=== PATIENT | female | born 1975 | race Caucasian/White ===

== ENCOUNTER → 2016-12-15 | Outpatient (CLI) | payer OTHER ==
[~2016-12-15] MED LIST: ASA325 MG PO; KEFLEX-DPS500 MG PO; MIRALAX PACKET17 GM PO; PROTONIX40 MG PO; SENOKOT S1 TAB PO; TYLENOL DPS325 MG PO; ULTRAM DPS50 MG PO
== END | disposition home or self-care (01) ==
LOC: PTH.S 09:57
DX: Z01.818 Encounter for other preprocedural examination (principal); Z68.41 Body mass index [BMI] 40.0-44.9, adult

== ENCOUNTER 2016-12-26 09:56 | Inpatient (IN) | payer OTHER ==
[~2016-12-26] VITALS: Ht 160 cm; Wt 108.7 kg
--- NOTE | 2016-12-28 13:48 | OR ---
ADMIT: 12/26/2016 RM/LOC: 528 [facility] MR#: [id number] LOCATED WITHIN [facility]#: [id number] [address] [address] JONO SEO [address] [place] [address] Operative/Delivery Room Report SEX: F AGE: 40 : 1975 SURGERY DATE: 12/26/2016 SURGEON: Courtney Francis MD PREOPERATIVE DIAGNOSES: 1. Severe degenerative joint disease, right knee. 2. Status post anterior cruciate ligament reconstruction, right knee. POSTOPERATIVE DIAGNOSES: 1. Severe degenerative joint disease, right knee. 2. Status post anterior cruciate ligament reconstruction, right knee. PROCEDURES: 1. Right total knee arthroplasty. 2. Removal of screws, right knee. ANESTHESIA: Spinal. ASSISTED BY: ROSE MARIE Palacios. TOURNIQUET TIME: 60 minutes. ESTIMATED BLOOD LOSS: 25 mL. COMPLICATIONS: None. SPECIMEN: Bone, soft tissue, and metallic screws. COMPONENTS: Roland and Roland Attune total knee system with a #4 posterior stabilized lugged femoral, a #4 fixed bearing tibial, 8 mm tibial articular, and a 38 mm patella. I used 80 g of [place] SpeedSet bone cement without antibiotics. DESCRIPTION OF PROCEDURE: This patient was brought to the operating room. After satisfactory level of anesthesia was achieved, the right lower extremity was prepped and draped in the usual sterile fashion. Under tourniquet ischemia, a midline incision was made over the anterior aspect of the right knee through her prior skin incision. Dissection was carried down to her joint capsule where skin flaps were made at that level. A medial parapatellar incision was performed. The patella was then everted. I used an intramedullary alignment guide to make my distal femoral cut at 5 degrees in long axis of the femur. Then used the appropriate cutting block to prepare the femur for a #4 posterior stabilized lugged femoral component. The external alignment, and the notch cut, I did encounter the interference screw, which had been used for the anterior cruciate ligament reconstruction. I used an osteotome to better define the screw and then used a screwdriver to remove it. I could then finish the osteotomy for the notch cut. A #4 gave us the best coverage of the distal femur. The external alignment guide was then used for my tibial cut taking 2 mm off the lower side and appropriate amount off ADMIT: 12/26/2016 RM/LOC: 528 [facility] MR#: [id number] [address] [address] JONO SEO [address] [place] [address] Operative/Delivery Room Report SEX: F AGE: 40 : 1975 the medial side to correct her valgus deformity. A #4 tibial plate gave us the best coverage. I identified the screw in the tibia and easily removed this from the upper tibia and then used bone graft from my femoral side to bone graft the defect. An 8 mm gave us the best soft tissue tension and range of motion. The patella was then prepared for a 38 mm patellar component and she had very stable patellofemoral tracking. All trial components were then removed. Our local injection was then performed for postop pain control and when completed all bony surfaces were well irrigated and then dried and then using 80 g of [place] SpeedSet, bone cement without antibiotics I cemented in all components. The knee was held in extension and irrigated with warm antibiotic solution until the cement hardened. Once the cement had hardened, I flexed the knee, removed any extruded cement with an osteotome. I then irrigated the knee to remove any cement debris. The tourniquet was released at 60 minutes and the wound was thoroughly irrigated. Hemostasis was achieved using electrocautery. The joint capsule was then closed with interrupted #1 Vicryl running #2 Quill suture. The subcutaneous tissue reapproximated with 2- 0 Vicryl and skin with michael. A sterile dressing was applied to the wound and the patient was then transferred from the operative suite in stable condition. Courtney Francis MD/ abner JOB #: [id number] CC: Courtney Francis, Attending Physician FAMILY PHYSICIAN, Family Physician
[2016-12-29] MEDS ORDERED: ASA325 MG PO (17:07)
[2016-12-29] MEDS ORDERED: TYLENOL DPS325 MG PO (17:08)
[2016-12-29] MEDS ORDERED: MIRALAX PACKET17 GM PO (17:08)
[2016-12-29] MEDS ORDERED: PROTONIX40 MG PO (17:08)
[2016-12-29] MEDS ORDERED: SENOKOT S1 TAB PO (17:09)
[2016-12-29] MEDS ORDERED: ULTRAM DPS50 MG PO (17:09)
--- NOTE | 2017-01-03 07:44 | HP ---
ADMIT: 12/26/2016 RM/LOC: W.01 [facility] MR#: [id number] [address] [address] JONO SEO Ana [address] [place] [address] Pre-OP History and Physical SEX: F AGE: 40 : 1975 DATE OF SERVICE: CHIEF COMPLAINT: Degenerative joint disease, right knee. HISTORY: This patient presents for right total knee arthroplasty. She had an anterior cruciate ligament reconstruction many years ago. Her knee has gone on to arthritis, predominantly at the patellofemoral joint and lateral compartment. She has had an arthroscopic debridement, extensive physical therapy, multiple injections all without relief of her symptoms. She now has pain that interferes with activities of daily living and keeps her awake at night. PAST MEDICAL HISTORY: She has had a carpal tunnel in the past, anterior cruciate reconstruction, arthroscopic debridement of the right knee in 2013, and in the past. MEDICATIONS: Include: 1. Adri. 2. Ibuprofen. ALLERGIES: SHE IS ALLERGIC TO NAPROXEN. SHE SAYS SHE GETS GI DISCOMFORT WITH NAPROXEN, BUT NO HISTORY OF RASH. FAMILY HISTORY: Positive for cancer. SOCIAL HISTORY: The patient works at [employer]. REVIEW OF SYSTEMS: Negative. PHYSICAL EXAMINATION: This patient has a valgus deformity of the right knee. She has lateral joint line pain, severe patellofemoral crepitus. IMPRESSION: Severe degenerative joint disease, right knee. RECOMMENDATIONS: Right total knee arthroplasty. Risks, benefits, alternatives, as well as potential complications were discussed. Courtney Francis MD/ abner JOB #: [id number] CC: Courtney Francis, Attending Physician FAMILY PHYSICIAN, Family Physician
[2017-01-10] MEDS ORDERED: KEFLEX-DPS500 MG PO (06:39)
--- NOTE | 2017-01-16 08:35 | CO ---
ADMIT: 12/26/2016 RM/LOC: W[facility] MR#: [id number] [address] [address] GABBI JONO Perez [address] [place] [address] Consultation Report SEX: F AGE: 40 : 1975 DATE OF CONSULTATION: 12/15/2016 ATTENDING PHYSICIAN: Courtney Francis CONSULTING PHYSICIAN: Raúl Becker DO REASON FOR HOSPITALIZATION: Right knee replacement. HISTORY OF PRESENT ILLNESS: This is a 40-year-old, female patient, who has a longstanding history of right knee DJD and ACL repair. She has had surgeries on three separate occasions to her right knee and is now being prepared for right knee replacement. She has typically been taken care of by Dr. Gant, and he is transitioning her care to Dr. Gray. She has no history of blood clots. She does have a prior history of peptic ulcer, and reflux disease, and irritable bowel syndrome with diarrhea, as well as obesity. FAMILY HISTORY: Noncontributory. SOCIAL HISTORY: She is present with her /significant other. Denies tobacco. MEDICATIONS: None. REVIEW OF SYSTEMS: Negative for chest pain, shortness of breath, cough, sputum production. No fevers, chills, nausea, vomiting, diarrhea, constipation, or dysuria. PHYSICAL EXAMINATION: GENERAL: She is pleasant. Well kept. VITAL SIGNS: Blood pressure 118/78. She has a body mass index of 40.9, weight 231 pounds, and 5 foot 3 inches tall. NECK: There is no JVD or bruit. HEART: Regular. LUNGS: Clear. ABDOMEN: Soft, round, nontender. EXTREMITIES: Reveal no edema with good pulses. LABORATORY AND DIAGNOSTIC DATA: EKG shows a sinus rhythm and labs are essentially within healthy range. Her white count is slightly elevated at 12, ADMIT: 12/26/2016 RM/LOC: W.01 [facility] MR#: [id number] [address] [address] JONO SEO [address] [place] [address] Consultation Report SEX: F AGE: 40 : 1975 and her blood sugar is slightly elevated at 109. IMPRESSION: 1. Mild hyperglycemia. 2. Mild leukocytosis. 3. Degenerative joint disease. 4. Obesity. 5. History of irritable bowel syndrome and reflux. PLAN: I see no contraindications to her upcoming surgery, and I have encouraged her to proceed. I will use aspirin as deep vein thrombosis prophylaxis and help and assist with her care perioperatively. Raúl Becker DO/ abner JOB #: [id number] CC: Courtney Francis, Attending Physician FAMILY PHYSICIAN, Family Physician
--- NOTE | 2017-01-30 11:55 | DS ---
ADMIT: 12/26/2016 RM/LOC: 528 [facility] MR#: [id number] [id number] [address] [address] SEOJONO Freitas [address] [place] [address] General Discharge Summary SEX: F AGE: 40 : 1975 ADMISSION DATE: 12/26/2016 DISCHARGE DATE: 12/28/2016 REASON FOR ADMISSION: Elective right total knee arthroplasty after failing conservative care. ACTIVE MEDICAL PROBLEMS: History of peptic ulcer and reflux disease, irritable bowel syndrome with diarrhea, and obesity. Surgical history significant for carpal tunnel release, anterior cruciate ligament reconstruction of the right knee, right knee arthroscopy, and C- section. PREOPERATIVE DIAGNOSES: 1. Severe degenerative joint disease of the right knee. 2. Status post anterior cruciate ligament reconstruction of the right knee. POSTOPERATIVE DIAGNOSES: 1. Severe degenerative joint disease of the right knee. 2. Status post anterior cruciate ligament reconstruction of the right knee. PROCEDURES PERFORMED: 1. Removal of screws in the right knee. 2. Right total knee arthroplasty. ANESTHESIA: Spinal. SURGEON: Courtney Francis MD COMMUNICATIONS MAINTAINER: ROSE MARIE Palacios TOURNIQUET TIME: 60 minutes. ESTIMATED BLOOD LOSS: 25 mL. COMPLICATIONS: None. HOSPITAL COURSE: The patient was admitted on 12/26/2016, for elective right total knee arthroplasty done successfully without any complications by Dr. Francis. The patient tolerated the procedure well. The patient did complain of increased pain overnight, but her pain was well controlled for the rest for stay. As expected, she did suffer from acute blood loss anemia. Her hemoglobin dropped to 11.8 on 12/28/2016, but she remained hemodynamically stable and did not require blood transfusion. By postoperative day #2, she was safe, stable, and doing well with physical therapy. She was ready for discharge home with plans for outpatient physical therapy. ADMIT: 12/26/2016 RM/LOC: 528 [facility] MR#: [id number] [address] [address] SEO JONO Perez [address] [place] [address] General Discharge Summary SEX: F AGE: 40 : 1975 DISCHARGE MEDICATIONS: 1. Aspirin 325 mg at bedtime for 6 weeks. 2. MiraLax 17 mg daily as needed for 1 month. 3. Protonix 40 mg at bedtime for 6 weeks. 4. Senokot 2 tablets twice daily for 1 month. 5. Tylenol 650 mg every 6 hours as needed for pain and fever. 6. Ultram 50 to 100 mg every 6 hours as needed for pain. DISCHARGE INSTRUCTIONS: The patient was discharged home with plans for outpatient physical therapy per total knee arthroplasty protocol. Follow up in the orthopedic office in 2 weeks for wound check, in 6 weeks with x-ray. Follow up with primary care as directed. ROSE MARIE Palacios / Courtney Francis MD / abner JOB #: [id number] CC: Courtney Francis MD, Attending Physician NO FAMILY PHYSICIAN, Family Physician
== END 2016-12-28 15:40 | disposition home or self-care (01) | DRG 470 ==
LOC: WOR 10:35 → 5MS 10:35
PROVIDERS: ADMIT Orthopaedic Surgery
DX: M17.11 Unilateral primary osteoarthritis, right knee (principal); D62 Acute posthemorrhagic anemia; Z68.41 Body mass index [BMI] 40.0-44.9, adult; K21.9 Gastro-esophageal reflux disease without esophagitis; K58.0 Irritable bowel syndrome with diarrhea; E66.9 Obesity, unspecified; Z87.11 Personal history of peptic ulcer disease

== ENCOUNTER 2017-01-07 17:49 | Observation (INO) | payer OTHER ==
[~2017-01-07] VITALS: Ht 160 cm; Wt 110.2 kg
[~2017-01-07 17:49] MED LIST changes: -KEFLEX-DPS500 MG PO
--- NOTE | 2017-01-09 13:46 | HP ---
ADMIT: 01/07/2017 RM/LOC: 510 [facility]#: [id number] [facility] [id number] [address] [address] JONO SEO [address] [place] [address] History and Physical SEX: F AGE: 41 : 1975 DATE OF SERVICE: CHIEF COMPLAINT: Right knee pain after surgery. HISTORY OF PRESENT ILLNESS: This is a 41-year-old female, who is almost two weeks out from right total knee replacement with Dr. Francis, who presents to the ER with 1 day of fever, right knee surgical site pain, redness, mild drainage, and foul smell. The patient states that she has had normal postoperative pain, but this seemed to be worsening over the last day or so. She took off her bandage, had a foul smell, and a slightly green discolored drainage, and she noticed that it was more red than normal around the incision staple line. She came into the ER with concerns for an infection. EMERGENCY ROOM COURSE: The patient was found to have a fever and mild leukocytosis. X-rays were performed which showed no suspicious interval change, normal postoperative changes of the right knee. Lactic acid and procalcitonin were normal. However, given postoperative status, and the obvious skin infection, she is admitted for IV antibiotics for her infection. Dr. Aviles with Orthopedics was consulted in the emergency room and will see the patient on admission. PAST MEDICAL HISTORY: Right ACL repair, and obesity. FAMILY HISTORY: Noncontributory. SOCIAL HISTORY: The patient is . Denies any tobacco use. MEDICATIONS: None. ALLERGIES: PENICILLIN. REVIEW OF SYSTEMS: Positive for fever. No nausea, vomiting, or abdominal pain. No cough or chest pain. No shortness of breath or wheezing. No constipation or diarrhea. No numbness, tingling, or weakness. Does endorse pain of that right knee surgical site. PHYSICAL EXAMINATION: VITAL SIGNS. Temperature 98.2, pulse 93, respirations 20, blood pressure 144/87, O2 saturation 100% on room air. GENERAL: The patient is awake, alert, and oriented x3. No acute distress. She is pleasant and hold a normal conversation. HEENT: Normocephalic and atraumatic. PERRLA. EOMI. Mucous membranes are moist. NECK: Supple. No lymphadenopathy. No carotid bruit or JVD noted. CARDIOVASCULAR: Regular rhythm and rate. No murmurs, rubs, or gallops. PULMONARY: Clear to auscultation bilaterally. ABDOMEN: Soft, nontender, and nondistended. EXTREMITIES: Right knee shows expected postoperative changes. She does have a large midline scar over her knee with michael in place. She does have some discrete areas of redness ADMIT: 01/07/2017 RM/LOC: 510 [facility] MR#: [id number] [address] [address] JONO SEO [address] [place] [address] History and Physical SEX: F AGE: 41 : 1975 along her incision that are erythematous, warm to touch, and tender to palpation. There is no obvious purulent drainage that I can see. Knee has no joint effusion. She does have some range of motion that is limited due to pain and swelling. She has no pain in her ankle or foot region. PT and DP pulses are 2+ in bilateral lower extremities. No other cyanosis, clubbing, or edema. LABS AND IMAGING: Blood cultures are pending. White count is 12.0, hemoglobin 12.2, and platelets 450. CMP is normal. CRP is 2.59. X-ray of the right knee shows postoperative change with no suspicious interval change. Lactic acid is 0.8. Procalcitonin is less than 0.05. ASSESSMENT AND PLAN: Surgical site infection, cellulitis of the right knee. Orthopedics has been consulted and has seen the patient. We agreed that this likely represents a cellulitis and not an actual hardware or joint infection. She has been started on vancomycin and Merrem in the emergency room. We will continue that. She also has medications ordered for pain, and nausea control p.r.n. We will recheck a CBC and a CRP in the morning. Otherwise, plan for IV antibiotics. Transition to orals. Anticipate her being here for just a few days. Ja Reaves MD Resident / Leonard Wong MD / alyshal JOB #: [id number] CC: Leonard Wong, Attending Physician Leonard Wong, Family Physician
[2017-01-10] MEDS ORDERED: KEFLEX-DPS500 MG PO (06:39)
--- NOTE | 2017-01-10 13:57 | ER ---
ADMIT: 01/07/2017 RM/LOC: ER [facility] MR#: [id number] [address] [address] JONO SEO [address] [facility] [place] [address] Emergency Room Report SEX: F AGE: 41 : 1975 DATE: 01/07/2017 CHIEF COMPLAINT: "Right knee infection." HISTORY OF PRESENT ILLNESS: This is a 41-year-old white female who presents to the ER complaining of possible infection in her right knee replacement. States she had a right total knee replaced on the [address] Francis. Over the past day, she has noticed increased redness, warmth, and off and on fevers. She states she did have an episode with some greenish drainage out of the wound. States she has some tenderness and a burning pain about the surgical site feeling like her michael are tearing her skin. Otherwise, no complaints today. States she has been recovering unremarkably, is currently doing physical therapy without difficulties. ALLERGIES: DOES HAVE AN ALLERGY TO PENICILLIN. COURSE IN THE EMERGENCY ROOM: The patient was seen and examined. She is afebrile and nontoxic. No acute distress. She is alert. Examination of the right knee does show a warm, red, tender incision closed with michael. I do not note any drainage during exam. She is tender about the surgical site. She does have limited range of motion. She is currently ambulating using a wheeled walker. Neurovascularly, she is intact to light touch. Pulses are equal bilaterally. Physical exam is otherwise unremarkable. I did get 2 view x-rays of this, compared to a film obtained 2 weeks prior, unremarkable. White count 12.0, hemoglobin 12.2, hematocrit 37.6, and platelets 450. CRP was 2.59. Did phone Dr. Aviles, who is on for Dr. Francis today, who recommended admission for IV antibiotics. The patient is Dr. Gray's patient, will be admitted via [facility] in the service and care of Dr. Wong. I did speak with Dr. Wong, he is willing to admit the patient to Med-Surg. Dr. Reaves, his resident will be in to see the patient. I did continue sepsis protocol after this. Sepsis labs are pending at this time. She will be IMPRESSION: Right knee cellulitis, status post right TKA. DISPOSITION: The patient was admitted to the care of Dr. Wong with consult to Dr. Aviles. The patient was admitted to the floor in stable condition. ROSE MARIE Aragon / Chandrakant Andrews MD / modl JOB #: [id number] CC: Brannon Magdaleno MD, Attending Physician UNKNOWN, Family Physician Courtney Francis MD
--- NOTE | 2017-01-27 07:39 | CO ---
ADMIT: 01/07/2017 RM/LOC: 510 [facility] MR#: [id number] [address] [address] SEOJONO Freitas [address] [facility] [place] [address] Consultation SEX: F AGE: 41 : 1975 DATE OF CONSULTATION: 01/07/2017 ATTENDING PHYSICIAN: Leonard Wong CONSULTING PHYSICIAN: Fred Aviles MD CHIEF COMPLAINT: Knee pain. HISTORY OF PRESENT ILLNESS: The patient is a 41-year-old female, had a right total knee arthroplasty by Dr. Francis on December 26. She was doing quite well. Yesterday, she had some increasing burning around the right knee incision. She took her dressing off. She had a little serous drainage on the dressing and then developed some redness, it increased slightly today. She went to the [facility]. They concerned about infection and admitted her in the hospital. She has been afebrile. She does have slightly elevated labs though. Presently, no drainage. PHYSICAL EXAMINATION: A 41-year-old female. She has some diffuse erythema around the medial and lateral aspect of the incisions. On palpation of the wound, I cannot feel any fluctuance. I cannot express any fluid out of the incision presently. There was no knee joint effusion that I can palpate. She does not have pain with range of motion of the knee except over the anterior skin. No instability. Legs neurovascularly intact. LABORATORY DATA: White blood cell count was 12.0. Sedimentation rate 48. CRP 2.59. IMPRESSION: 1. Right total knee arthroplasty with superficial cellulitis. 2. No evidence of deep infection. PLAN: At the present time, she does not have any knee effusion. I do not feel it is worth aspirating the knee presently. She has already been on antibiotics since she was admitted. We will monitor the wound. I think it is just a superficial cellulitis, hopefully resolves conservatively. Fred Aviles MD/ abner JOB #: [id number] CC: Leonard Wong, Attending Physician Leonard Wong, Family Physician
== END 2017-01-09 11:15 | disposition home or self-care (01) ==
LOC: ER 17:49 → 5MS 19:56 → ER 20:50 → 5MS 01-09 11:15
PROVIDERS: ADMIT Family Medicine
DX: L03.115 Cellulitis of right lower limb (principal); Z96.651 Presence of right artificial knee joint; Z88.0 Allergy status to penicillin; E66.9 Obesity, unspecified